=== PATIENT | male | born 1930 | race Caucasian/White ===

== ENCOUNTER → 2018-01-17 | Outpatient (CLI) | payer MEDICARE ==
[~2018-01-17] MED LIST: ASC500 PO; ASCO-182 PO; ASP325 PO; ASPI1TAB23 PO; BENA1TAB58 PO; BENA20TA8 PO; CALC400T65 PO; CALC430T PO; CALC625T57 PO; FLU44R INH; FLUT16SP19 NS; GUAI-652 PO; MOMR; MULT-1335 PO; MULT-865 PO; NIAC500C12 PO; NIAC500C17 PO; PNEI IJ; POLY17PO25 PO; TADA5TAB7 PO; TAMS0.4C25 PO; VITA400T2 PO; VITE400 PO; [UNRECOGNIZED DRUG - CODE] PO; [UNRECOGNIZED DRUG - CODE] PO
[2018-01-17 09:45] LABS: PLATELET COUNT, AUTOMATED 315 K/uL (150-450)
== END ==
LOC: LAB 08:42
PROVIDERS: ATTEND Family Medicine
DX: I10 Essential (primary) hypertension (principal)
CPT/HCPCS: 36415; 82310; 82374; 82435; 82565; 82947; 84132; 84295; 84520; 85025

== ENCOUNTER → 2018-03-10 | Outpatient (CLI) | payer MEDICARE ==
[~2018-03-10] MED LIST changes: +PSYL0.525 PO
[2018-03-10 09:19] LABS: PLATELET COUNT, AUTOMATED 311 K/uL (150-450)
== END ==
LOC: LAB 08:54
PROVIDERS: ATTEND Family Medicine
DX: R19.7 Diarrhea, unspecified (principal); R63.4 Abnormal weight loss
CPT/HCPCS: 36415; 82040; 82247; 82310; 82374; 82435; 82565; 82947; 83630; 84075; 84132; 84155; 84295; 84443; 84450; 84460; 84520; 85025; 87045; 87177; 87205; 87324; 87449